=== PATIENT | female | born 1990 | race Caucasian/White ===

== ENCOUNTER 2022-08-06 18:20 | Observation (INO) | payer OTHER, SELFPAY ==
--- NOTE | 2022-08-06 19:58 | OBADM ---
This patient, Shauna Cook, admitted to the OB room Labor/Delivery/Recovery 106 for observation. Patient/family oriented to hospital policies and general routines including ID bracelet, bed and alarms, visiting hours, pain management, procedures, bathroom and other care routines, personal items, smoking policy, room service/diet, and visiting hours. Patient/Family are encouraged to report perceived risks to care and to ask questions if they do not understand what they are told or what they should do.
--- NOTE | 2022-08-10 14:45 | PM.OBTRLD ---
OB - Triage/Final Diagnosis Visit Information Date of evaluation: 08/06/22 Reason for evaluation: threatened labor Comments/Additional reasons for admission: I have assessed the risk for this patient, Shaunarachel Cook, and determined that she would benefit from observation care.
== END 2022-08-06 20:08 | disposition home or self-care (01) ==
PROVIDERS: Admitting Provider Obstetrics & Gynecology; PCP Physician Assistant; Visit Provider Obstetrics & Gynecology
DX: O47.03 False labor before 37 completed weeks of gestation, third trimester (principal); Z3A.36 36 weeks gestation of pregnancy
CPT/HCPCS: G0378; G0379

== ENCOUNTER 2022-08-11 21:27 | Observation (INO) | payer OTHER, SELFPAY ==
--- NOTE | 2022-08-12 02:33 | LDADM ---
This patient, Shauna Cook, was admitted to Labor/Delivery/Recovery 106 on 08/11/22 at 21:27. Plans for labor, pain management and were discussed with patient. Patient/family oriented to hospital policies and general routines including ID bracelet, bed and alarms, visiting hours, pain management, procedures, bathroom and other care routines, personal items, smoking policy, room service/diet and guest tray routines, security routines, and visiting hours. Patient/Family are encouraged to report perceived risks to care and to ask questions if they do not understand what they are told or what they should do. See OBIX for further documentation.
--- NOTE | 2022-08-13 19:17 | PM.OBTRLD ---
OB - Triage/Final Diagnosis Visit Information Date of evaluation: 08/12/22 Reason for evaluation: threatened labor Comments/Additional reasons for admission: I have assessed the risk for this patient, Shaunaalfredo Cook, and determined that she would benefit from observation care.
== END 2022-08-12 02:37 | disposition home or self-care (01) ==
PROVIDERS: Admitting Provider Obstetrics & Gynecology; PCP Physician Assistant; Visit Provider Obstetrics & Gynecology
DX: O47.9 False labor, unspecified (principal); Z3A.00 Weeks of gestation of pregnancy not specified
CPT/HCPCS: G0378; G0379

== ENCOUNTER 2022-08-19 14:33 | Observation (INO) | payer OTHER, SELFPAY ==
[2022-08-19 17:40] VITALS: BMI 37.8
--- NOTE | 2022-08-20 10:09 | PM.OBTRLD ---
OB - Triage/Final Diagnosis Visit Information Date of evaluation: 08/19/22 Reason for evaluation: threatened labor Comments/Additional reasons for admission: I have assessed the risk for this patient, Shaunaalfredo Cook, and determined that she would benefit from observation care.
== END 2022-08-19 17:20 | disposition home or self-care (01) ==
PROVIDERS: Admitting Provider Obstetrics & Gynecology; PCP Physician Assistant; Visit Provider Obstetrics & Gynecology
DX: O47.1 False labor at or after 37 completed weeks of gestation (principal); Z3A.38 38 weeks gestation of pregnancy
CPT/HCPCS: G0378; G0379

== ENCOUNTER 2022-08-24 06:20 | Inpatient (IN) | payer OTHER, SELFPAY ==
[2022-08-24] VITALS (20 sets, daily range): BP systolic 116–152; BP diastolic 68–87; PULSE 69–95; RESP 18; TEMP 36.6–37.1; O2SAT 98–99; BMI 37.8
[2022-08-24 07:07] LABS: Basophils Percent Auto 0.2 % (0.2-1.2); Eosinophils Absolute Auto 0.5 K/mm3 (0-0.3); Eosinophils Percent Auto 4.5 % (0-4.4); Hematocrit 32.1 % (37.0-47.0); Hemoglobin 10.2 g/dL (12.0-15.0); Immature Granulocyte Absolute 0.15 K/mm3 (0.00-0.031); Immature Granulocyte Percent A 1.4 % (0-0.5); Lymphocytes Absolute Auto 2.04 K/mm3 (0.9-3.2); Lymphocytes Percent Auto 18.6 % (18.3-44.2); Mean Corpuscular HGB Conc 31.8 g/dl (32-36); Mean Corpuscular Hemoglobin 27.3 pg (26-34); Mean Corpuscular Volume 86.1 fl (80-100); Mean Platelet Volume 11.6 fl (7.4-10.4); Monocytes Absolute Auto 0.9 K/mm3 (0.1-0.6); Monocytes Percent Auto 7.7 % (2.6-8.5); Neutrophils Absolute Auto 7.4 K/mm3 (1.3-6.7); Neutrophils Percent Auto 67.6 % (45.5-73.1); Platelet Count Result 256 k/mm3 (150-375); Red Blood Count 3.73 M/mm3 (4.2-5.4); Red Cell Distribution Width 14.8 % (11.5-14.5)
[2022-08-24] MEDS: LACTATED RINGERS 1,000 ML 125 ML IV CONT (07:07)
[2022-08-24] MEDS: OXYTOCIN 30 UNITS/NS 500 ML 30 UNITS/500 ML BAG IV CONT (07:11)
--- NOTE | 2022-08-24 07:29 | LDADM ---
This patient, Shauna Cook, was admitted to Labor/Delivery/Recovery 106 on 08/24/22 at 06:20. Plans for labor, pain management and were discussed with patient. Patient/family oriented to hospital policies and general routines including ID bracelet, bed and alarms, visiting hours, pain management, procedures, bathroom and other care routines, personal items, smoking policy, room service/diet and guest tray routines, security routines, and visiting hours. Patient/Family are encouraged to report perceived risks to care and to ask questions if they do not understand what they are told or what they should do. See OBIX for further documentation.
--- NOTE | 2022-08-24 07:49 | WPDOBADMIT ---
Obstetrics - Admit Note Admission Note: record reviewed. No pertinent additions to the history and/or any subsequent changes in the physical findings that are not consistent with the expected course of the were found. elective IOL, 39 weeks gestation, sve /-2 arom small amount of clear fluid, anticipate vaginal delivery Additions to the history and/or subsequent changes in the physical findings follow. None.
--- NOTE | 2022-08-24 09:34 | PM.OBPNVD ---
OB - PN: Subj Subjective Date/time seen: 08/24/22 09:34 SVE 3/90/-2 AROM moderate amount of clear, odorless fluid, anticipate vaginal delivery OB - PN: Obj Data Labs 08/24/22 06:54 Labs: Laboratory Results - last 24 hr 08/24/22 08/24/22 06:54 06:54 WBC 11.0 H RBC 3.73 L Hgb 10.2 L Hct 32.1 L MCV 86.1 MCH 27.3 MCHC 31.8 L RDW 14.8 H Plt Count 256 MPV 11.6 H Immature Gran % (Auto) 1.4 H Neut % (Auto) 67.6 Lymph % (Auto) 18.6 [place] % (Auto) 7.7 Eos % (Auto) 4.5 H Baso % (Auto) 0.2 Lymph # (Auto) 2.04 [place] # (Auto) 0.9 H Eos # (Auto) 0.5 H Baso # (Auto) 0.0 Abs Immat Gran (auto) 0.15 H Absolute Neuts (auto) 7.4 H Absolute Nucleated RBC 0.0 Nucleated RBC % 0.0 Blood Type O Positive Antibody Screen Negative OB - PN A/P Time Spent With Patient Time: Total time spent is greater than 50% in coordination of care (as documented) at patient's floor/unit and/or counseling patient:
[2022-08-24 10:36] LABS: Rapid Plasma Reagin Non-Reactive (NonReactive)
[2022-08-24] MEDS: fentaNYL CITRATE INJ (*CRX) 100 MCG/2 ML VIAL IV PUSH (11:09)
--- NOTE | 2022-08-24 13:53 | PM.OBPRVD ---
OB - Delivery Note Procedure Delivery date: 08/24/22 Procedure: Induction method: AROM and Per Pitocin Protocol Delivery monitor: External FHT and External Uterine Route of delivery: Laceration Description: None Specimen: No Quantitative Blood Loss (ml): 205 Anesthesia type: None Disposition: Floor [place] Baby Date of : 08/24/22 Time of : 13:43 Weeks of gestation at delivery: 39 gender: Male presentation: vertex position: Left Occiput Anterior Placenta delivery description: Spontaneous Cord Vessel Description: 3 Vessels score one minute: 8 score five minutes: 9 Narrative: mother and baby skin to skin in stable condition
[2022-08-24] MEDS: OXYTOCIN 30 UNITS/NS 500 ML 30 UNITS/500 ML BAG 125 UNITS IV CONT (16:00)
--- NOTE | 2022-08-24 16:45 | PC.NURSE ---
Patient transferred to post room #wheelchair via 1645. Support person present. Oriented to unit, room, information board, rooming in, admission packet and security measures. Patient verbalizes understanding.
[2022-08-25 00:20] VITALS: BP 136/65; PULSE 77; RESP 18; TEMP 37.1; O2SAT 99
[2022-08-25 04:30] VITALS: BP 126/65; PULSE 85; RESP 18; TEMP 36.6; O2SAT 99
[2022-08-25 05:05] LABS: Hematocrit 30.2 % (37.0-47.0); Hemoglobin 9.5 g/dL (12.0-15.0)
--- NOTE | 2022-08-25 07:47 | PM.OBPNVD ---
OB - PN: Subj Subjective Date/time seen: 08/25/22 07:47 Patient comments: no complaints baby status: doing well OB - PN: Obj Data Labs 08/25/22 04:26 Labs: Laboratory Results - last 24 hr 08/24/22 08/24/22 08/25/22 06:54 06:54 04:26 Hgb 9.5 L Hct 30.2 L RPR Non-reactive Blood Type O Positive Antibody Screen Negative OB - PN A/P Plan day: 1 Plan: routine care Time Spent With Patient Time: Total time spent is greater than 50% in coordination of care (as documented) at patient's floor/unit and/or counseling patient: Time with patient: less than 15 minutes Review of Systems Review of Systems: All systems reviewed & are unremarkable except as noted in HPI and below Exam Narrative: Fundus firm and vaginal flow controlled. No lower ext redness, warmth, or edema. Negative homans. Const: General: comfortable Chest: Breast/axilla inspection: normal inspection of the breasts Resp: Effort & Inspection: normal respiratory effort Cardio: Rate: regular rate GI: GI Palp: Yes Soft to palpation Psych: Appearance: grossly normal Affect: normal affect Attitude: cooperative Thought content: Yes Normal thought content present Judgement: Good judgement present (Psych)
[2022-08-25 08:25] VITALS: BP 122/71; PULSE 79; RESP 18; TEMP 36.8; O2SAT 99
[2022-08-25] MEDS: MULTIVIT/MIN/PREN/FOL AC/IRON TABLET 1 TAB PO (09:06)
[2022-08-25] MEDS: POLYSACCHARIDE IRON COMPLEX 150 MG CAPSULE PO ×2 (09:06→17:29)
[2022-08-25] MEDS: DOCUSATE SODIUM 100 MG CAPSULE PO ×2 (09:06→17:30)
--- NOTE | 2022-08-25 09:40 | PC.NURSE ---
0917-Introductions were made, then consulted with patient to assess needs related to . Mother led the conversation with her?plans to feed?her , history and the?experience so far going well with no pain. Resources provided for inpatient and outpatient services with the feeding sheet, mom/baby guide and name written on the white board. Mother voiced understanding of information and will call if there is a request for assistance. Reported to the primary RN.
[2022-08-25 12:31] VITALS: BP 130/80; PULSE 80; RESP 16; TEMP 37.1; O2SAT 99
[2022-08-25] MEDS: CYCLOBENZAPRINE HCL 5 MG TABLET PO (17:47)
[2022-08-25 18:49] VITALS: BP 133/64; PULSE 83; RESP 16; TEMP 36.9; O2SAT 100
--- NOTE | 2022-08-26 05:12 | PC.NURSE ---
08/25/2022 at 1900 Patient viewed the discharge video Mother & Baby Care, The First Two Weeks . Patient was given the opportunity and encouraged to ask questions. Patient verbalized understanding of information shared and has been given the mother/baby guide for home reference.
--- NOTE | 2022-08-26 07:29 | P.PNOB_ITS ---
Pain Control Date/time seen: 08/26/22 Stacie
--- NOTE | 2022-08-26 07:29 | PM.OBPNLAB ---
Pain Control Date/time seen: 08/26/22 Stacie
--- NOTE | 2022-08-26 07:29 | PM.OBPNVD ---
OB - PN: Subj Subjective Date/time seen: 08/26/22 07:29 OB - PN: Obj Data Labs 08/25/22 04:26 OB - PN A/P Plan day: 2 Plan: routine care and discharge home Time Spent With Patient Time: Total time spent is greater than 50% in coordination of care (as documented) at patient's floor/unit and/or counseling patient: Review of Systems Review of Systems: All systems reviewed & are unremarkable except as noted in HPI and below Exam Narrative: Fundus firm below umbilicus, doing well Const: General: cooperative and healthy appearing
--- NOTE | 2022-08-26 07:31 | P.DS_ITS ---
DS: Admitting Diagnosis Discharge Date 08/26/22 Admitting Diagnosis IOL DS: Discharge Diagnosis Discharge Diagnosis (1) Vaginal delivery: Code(s): O80 - Encounter for full-term uncomplicated delivery Status: Acute OB - DS: Summary OB Procedures : None OB Procedures Intrapartum: Spontaneous Vag Delivery OB Procedures: : None Time Spent with Patient Time attestation: Total time spent providing and/or coordinating discharge services: Discharge Plan Discharge Attending physician on discharge: Mila Urias Discharging Clinician: Salena Najera Patient Disposition: Home, Self-Care Activity: pelvic rest Diet: regular Patient Instructions: Antibiotic Form Stand Alone Forms: General Discharge Information Follow-up/Referrals: Salena Najera, [facility] [Certified Nurse Heavy Duty Custodian] - 4 Weeks Discharge Medications: New ibuprofen 600 mg Tablet 600 mg PO Q6H PRN (Reason: Cramping) Qty: 30 0RF Continued prenat.vits,negro,aah-jyhu-fcxip Tablet 1 tablet PO DAILY cyclobenzaprine 5 mg Tablet 5 mg PO HS ferrous sulfate [Iron (ferrous sulfate)] 325 mg (65 mg iron) Tablet 325 mg PO BID Date of admission: 08/24/22 06:20 Primary Care Provider: DiChepe Admitting Provider: Alysha Marley Attending physician on admission: Alysha Marley Condition: Stable
[2022-08-26 08:30] VITALS: BP 111/72; PULSE 70; RESP 16; TEMP 36.7; O2SAT 99
[2022-08-26] MEDS: POLYSACCHARIDE IRON COMPLEX 150 MG CAPSULE PO (08:53)
[2022-08-26] MEDS: DOCUSATE SODIUM 100 MG CAPSULE PO (08:53)
[2022-08-26] MEDS: MULTIVIT/MIN/PREN/FOL AC/IRON TABLET 1 TAB PO (08:53)
--- NOTE | 2022-08-26 10:37 | PC.NURSE ---
Addendum entered by Julieta Bui RN 08/26/22 10:42: We discussed the cautions of bottle feeding formula and encouraged to protect the milk supply. Mother voiced understanding and chooses to feed as needed based on summer activities. Original Note: [id number] Mother demonstrates she is able to independently latch infant and denies any nipple discomfort and is responsively . Infant is currently meeting outcomes for weight, output, jaundice and feeding frequencies of 8-12 times in 24 hours. has space between the cheek and breast, mouth appears to be 90 degrees, and body is dangling. Due to the natural fall of the mother's breast, RN offered practicing the football hold. Mother consents to learning. Reviewed positioning and ear, shoulder, hip alignment, supporting the breast to facilitate a deep latch, asymmetrical latch (off-center), leading with the chin with a big, open, wide gape and body close to mother. latched optimally to the right breast in football position. Education given to mother of how to visualize suck/swallow ratios and listen for drinking at the breast. was able to maintain latch without discomfort to mother. Nipple care reviewed with optimal latch and good positioning. Mother states that the latch feels great. Mother declines any additional assistance/education at this time. Mother is encouraged to call for assistance if her infant doesn?t latch or there is discomfort with latching. Mother voiced understanding of information shared and the mom reminded of the mom/baby guide for an additional resource. Reported to the primary RN.
[2022-08-28 10:08] VITALS: BP 138/79; PULSE 74; RESP 18; TEMP 37.5; O2SAT 99
== END 2022-08-26 11:36 | disposition home or self-care (01) | DRG 807 ==
LOC: ANHLDR 06:23 → ANHOB2 16:50
PROVIDERS: Advanced Practice Midwife; Admitting Provider Obstetrics & Gynecology; PCP Physician Assistant; Visit Provider Obstetrics & Gynecology
DX: O80 Encounter for full-term uncomplicated delivery (principal); Z37.0 Single live birth; Z3A.39 39 weeks gestation of pregnancy
CPT/HCPCS: 36415; 85014; 85018; 85025; 86592; 86850; 86900; 86901; A9270; J2590; J2795; J3010; J7120